=== PATIENT | female | born 1985 | race Native Hawaiian/Other Pacific Islander ===

== ENCOUNTER 2020-11-11 15:39 | Outpatient (CLI) | payer MEDICAID ==
[2020-11-11 16:58] LABS: Hematocrit 35.3 % (30.3-42.9); Hemoglobin 12.6 gm/dl (10.1-14.3); Mean Corpuscular HGB Conc 36 % (30-34); Mean Corpuscular Volume 83 fl (79-97); Platelet Count 205 K/mm3 (140-440); Red Blood Count 4.23 M/mm3 (3.65-5.03)
[2020-11-11 17:08] LABS: Bacteria,Urine 1+ /HPF (Negative); Bilirubin,Urine NEG (Negative); Blood,Urine MOD (Negative); Color,Urine Yellow (Yellow); Mucus,Urine FEW /HPF; Protein,Urine <15 mg/dL mg/dL (Negative); Urobilinogen,Urine < 2.0 mg/dL (<2.0)
[2020-11-11 17:22] LABS: Alanine Aminotransferase 20 units/L (7-56); Uric Acid 3.2 mg/dL (3.5-7.6)
[2020-11-11 19:12] VITALS: BP 111/57
== END 2020-11-11 19:26 | disposition home or self-care (01) ==
LOC: TRG 15:39 → APU 15:41 → TRG 19:26
PROVIDERS: ATTEND Obstetrics & Gynecology
DX: O72.1 Other immediate postpartum hemorrhage (principal)
CPT/HCPCS: 36415; 81001; 82565; 83615; 84450; 84460; 84550; 85027